=== PATIENT | female | born 1945 | race Caucasian/White ===

== ENCOUNTER 2021-08-23 17:19 | Observation (INO) ==
[2021-08-23 18:00] LABS: Basophils % 0.2 %; Eosinophils # 0.1 K/mcL (0.0-0.6); Hematocrit 31.7 % (35.3-44.9); Immature Granulocytes % 0.3 % (0-4); Lymphocytes # 1.5 K/mcL (0.6-4.6); Mean Corpuscular HGB Conc 31.5 g/dL (31.6-35.5); Mean Corpuscular Hemoglobin 29.1 pg (28.0-33.3); Mean Corpuscular Volume 92.2 fL (83.0-100.0); Mean Platelet Volume 10.6 fL (9.4-12.4); Monocytes # 0.5 K/mcL (0.0-1.3); Monocytes % 8.3 %; Neutrophils # 4.2 K/mcL (1.6-8.9); Platelet Count 192 K/mcL (140-400); Red Blood Count 3.44 M/mcL (3.82-4.97); Red Cell Distribution Width 15.8 % (11.5-14.5); Segmented Neutrophils % 66.2 %; White Blood Count 6.3 K/mcL (4.3-11.1)
[2021-08-23 18:20] LABS: Albumin 3.4 g/dL (3.5-5.7); Albumin/Globulin Ratio 1.6 (1.1-2.2); Bilirubin,Total 0.5 mg/dL (0.3-1.0); Calcium 8.7 mg/dL (8.6-10.3); Globulin 2.1 g/dL (2.4-3.5); Potassium 4.4 mEq/L (3.5-5.1); Total Protein 5.5 g/dL (6.4-8.9)
[2021-08-23] MEDS ORDERED: 0.9 % Sodium Chloride 1,000 ML IV ONE (18:22)
[2021-08-23] MEDS ORDERED: Naloxone 0.4 MG/ML INJ IVP PRN (20:54)
[2021-08-23] MEDS ORDERED: 0.9 % Sodium Chloride 1,000 ML IVC SCH (20:54)
[2021-08-23] MEDS ORDERED: clonazePAM 0.5 MG TABLET PO PRN (21:04)
[2021-08-23] MEDS: Metoprolol 100 MG TABLET PO SCH (21:42)
[2021-08-24 07:22] VITALS: BP 128/62; PULSE 78; RESP 18; TEMP 98.3; O2SAT 92
[2021-08-24 07:29] LABS: Basophils % 0.2 %; Eosinophils % 0.2 %; Hematocrit 29.5 % (35.3-44.9); Hemoglobin 9.4 g/dL (11.5-15.4); Immature Granulocytes % 0.8 % (0-4); Lymphocytes # 1.2 K/mcL (0.6-4.6); Lymphocytes % 23.2 %; Mean Corpuscular HGB Conc 31.9 g/dL (31.6-35.5); Mean Corpuscular Hemoglobin 29.1 pg (28.0-33.3); Mean Corpuscular Volume 91.3 fL (83.0-100.0); Mean Platelet Volume 10.9 fL (9.4-12.4); Monocytes # 0.4 K/mcL (0.0-1.3); Monocytes % 8.1 %; Neutrophils # 3.4 K/mcL (1.6-8.9); Platelet Count 169 K/mcL (140-400); Red Blood Count 3.23 M/mcL (3.82-4.97); Red Cell Distribution Width 15.7 % (11.5-14.5); Segmented Neutrophils % 67.5 %
[2021-08-24 07:49] LABS: Potassium 4.2 mEq/L (3.5-5.1)
[2021-08-24] MEDS ORDERED: Cholecalciferol (D-3) 1,000 UNIT (25MCG) TABLET PO SCH (09:00)
[2021-08-24] MEDS ORDERED: Aspirin Enteric Coated 81 MG Tablet PO SCH (09:00)
[2021-08-24] MEDS ORDERED: Famotidine 20 MG TABLET PO SCH (09:00)
[2021-08-24] MEDS ORDERED: allopurinoL 100 MG TABLET PO SCH (09:00)
[2021-08-24] MEDS ORDERED: MOLNUPIRAVIR 200 MG PO SCH (09:00)
[2021-08-24] MEDS ORDERED: TOFACITINIB CITRATE 10 MG PO SCH (09:00)
[2021-08-24] MEDS ORDERED: Losartan/HCTZ 50-12.5 TABLET PO SCH (09:00)
[2021-08-24] MEDS: Metoprolol 100 MG TABLET PO SCH (09:16)
[2021-08-24] MEDS ORDERED: 0.9 % Sodium Chloride 1,000 ML IVC SCH (10:33)
[2021-08-24 16:43] LABS: Calcium 7.8 mg/dL (8.6-10.3); Potassium 4.2 mEq/L (3.5-5.1)
== END 2021-08-24 18:22 | disposition home or self-care (01) ==
LOC: INPPIK 17:19 → EMEROOPIK 17:19 → INPPIK 20:33
PROVIDERS: ADMIT Internal Medicine; ATTEND Internal Medicine